=== PATIENT | male | born 1995 | race Caucasian/White ===

== ENCOUNTER 2018-02-19 16:16 | Emergency (ER) | payer OTHER ==
[2018-02-19] MEDS ORDERED: IBUPROFEN 600 MG TAB PO ONE (16:42)
--- NOTE | 2018-02-19 16:50 | EDPHY ---
HPI/HX/ROS/PE/MDM Narrative: CHIEF COMPLAINT: "I seem to have injured my back" HPI: The patient is a 23 y/o male complaining of back pain for the last 2 days onset while golfing Thursday night. He was using the driving range at [employer] when he developed acute pain during a swing. The pain was minimal while golfing and has been progressively worsening since onset. His pain is primarily along his spine between his scapulas. He saw a chiropractor this morning and he did an "electric muscle thing" and and adjustment that made his symptoms worse. He' s been taking DayQuil for this and some concurrent cold symptoms. He has not taken any No prior history of back pain or surgery. He denies fever, weakness, paresthesias. REVIEW OF SYSTEMS: A comprehensive 10 system review of systems is otherwise negative aside from elements mentioned in the history of present illness. PMH: Denies SOCIAL HISTORY: Lives in [place]. PHYSICAL EXAM: General:Patient is alert, in no acute distress. ENT:Eyes are normal to inspection. ENT inspection normal. Neck: Normal inspection. Full range of motion. Respiratory:No respiratory distress. Breath sounds normal bilaterally. Cardiovascular: Regular rate and rhythm. Strong peripheral pulses. Normal cap refill. Abdomen:The abdomen is nontender to palpation. There are no peritoneal signs. Back: Tenderness midthoracic spine, reproducible with twisting movement. No visible trauma. Skin: Normal color. No rash. Warm and dry. Extremities: Normal appearance. Full range of motion. Neuro: Oriented x3. Normal motor function. Normal sensory function. ED Course: Healthy 23y/o male who presents with a 2-day history of progressive thoracic back pain secondary to playing golf. He has tenderness along his midline thoracic spine that is reproducible with movement. Doubt dissection. Plan for chest and thoracic spine x-ray. 600mg PO ibuprofen administered for pain. X-rays are negative. Reassessed patient and discussed findings. He will be discharged with scripts for Flexeril and Medrol dose pack and ibuprofen dose instructions. Recommended follow up with back specialist next week. Return precautions discussed. He is comfortable with this plan. MDM: This is a healthy young male with midline thoracic back pain after repetitive motion injury. I considered acute spinal cord or veterbral issue such as discitis, but patient has no risk factors for this and has a negative XR of the spine. Similarly, the patient has no risk factors for aortic dissection or PE, and CXR is negative for signs of either - furthermore, the patient's pain is easily reproducible with motion, making this less likely. We discussed option of a CT chest even though I feel he is low risk - he is comfortable with plan to decline this and try outpatient management with medrol, flexeril and rest. I have given him a referral to spine. - Data Points Imaging Results: Imaging Impressions Chest X-Ray 02/19/18 16:51 Impression: 1. Normal chest x-ray. 2. Normal thoracic spine series. Thoracic Spine X-Ray 02/19/18 16:51 Impression: 1. Normal chest x-ray. 2. Normal thoracic spine series. Imaging: I viewed and interpreted images myself Medications Given: Discontinued Medications Ibuprofen (Motrin) 600 mg PO EDNOW ONE Stop: 02/19/18 16:43 Last Admin: 02/19/18 16:48 Dose: 600 mg General Time Seen by Provider: 02/19/18 16:39 Initial Vital Signs: Initial Vital Signs Temperature (C) 37.0 C 02/19/18 16:31 Heart Rate 89 02/19/18 16:31 Respiratory Rate 16 02/19/18 16:31 Blood Pressure 141/97 H 02/19/18 16:31 O2 Sat (%) 94 02/19/18 16:31 O2 Delivery Mode Room Air Allergies/Adverse Reactions: No Known Allergies Allergy (Unverified 02/19/18 16:46) Home Medications: Medication Instructions Recorded Cyclobenzaprine [Flexeril] 10 mg PO TID #15 tab 02/19/18 methylPREDNISolone [Medrol Dose 1 each PO AD #1 ea 02/19/18 Mak] Departure - Departure Disposition: Home, Routine, Self-Care Clinical Impression: Back strain Condition: Good Instructions: Thoracic Back Strain (ED) Additional Instructions: 1. Take 600mg ibuprofen every 8 hours for pain and inflammation over the next few days. 2. Use Flexeril as prescribed when needed for severe pain/muscle spasm. This medication can make you drowsy. Do not use prior to driving. 3. Take Medrol dose pack as prescribed. Be sure to complete the entire prescription. 4. Follow up with back specialist next week. 5. Return to the ED for any worsening of condition. Referrals: Dom Joaquin MD [Medical Doctor] - As per Instructions Prescriptions: Cyclobenzaprine [Flexeril] 10 mg PO TID #15 tab methylPREDNISolone [Medrol Dose Mak] 1 each PO AD #1 ea Report Scribed for: Jasen Mccloud Report Scribed by: Suzy Bobo Date of Report: 02/19/18 Time of Report: 16:50 Physician Review and Approval Statement: Portions of this note were transcribed by an ED scribe. I personally performed the history, physical exam, and medical decision making; and confirm the accuracy of the information in the transcribed note.
[2018-02-19 17:58] VITALS: BP 136/86
== END 2018-02-19 17:58 | disposition home or self-care (01) ==
DX: S39.012A Strain of muscle, fascia and tendon of lower back, initial encounter (principal); X50.9XXA Other and unspecified overexertion or strenuous movements or postures, initial encounter; Y93.53 Activity, golf; Y92.39 Other specified sports and athletic area as the place of occurrence of the external cause; Y99.8 Other external cause status

== ENCOUNTER 2018-02-24 09:00 | Emergency (ER) | payer OTHER ==
--- NOTE | 2018-02-24 09:07 | EDPHY ---
H & P Stated Complaint: Rx refill Time Seen by Provider: 02/24/18 09:07 - Personal History Current Tetanus/Diphtheria Vaccine: Yes Current Tetanus Diphtheria and Acellular Pertussis (TDAP): Yes - Medical/Surgical History Hx Asthma: Yes Hx Chronic Respiratory Disease: No Hx Diabetes: No Hx Cardiac Disease: No Hx Renal Disease: No Hx Cirrhosis: No Hx Alcoholism: No Hx HIV/AIDS: No Hx Splenectomy or Spleen Trauma: No Other PMH: tonsilectomy - Social History Smoking Status: Never smoked Constitutional: Initial Vital Signs Temperature (C) 36.6 C 02/24/18 09:04 Heart Rate 88 02/24/18 09:04 Respiratory Rate 16 02/24/18 09:04 Blood Pressure 147/90 H 02/24/18 09:04 O2 Sat (%) 95 02/24/18 09:04 O2 Delivery Mode Room Air Allergies/Adverse Reactions: No Known Allergies Allergy (Unverified 02/24/18 09:04) Home Medications: Medication Instructions Recorded Cyclobenzaprine [Flexeril] 10 mg PO TID #15 tab 02/19/18 methylPREDNISolone [Medrol Dose 1 each PO AD #1 ea 02/19/18 Mak] Cyclobenzaprine [Flexeril 10 MG 10 mg PO TID PRN #15 tab 02/24/18 (*)] Medical Decision Making ED Course/Re-evaluation: CHIEF COMPLAINT: Upper back pain, medication refill HISTORY OF PRESENT ILLNESS: The patient is a 23 y/o male complaining of upper back pain ongoing since 02/17, one week ago. He was practicing his swing at [employer] and developed acute pain during a swing. His pain worsened progressively since onset and he was evaluated in this emergency department 02/19. X-ray at that time was negative for acute processes and he was discharged with a prescription for Flexeril, Medrol Dosepak. He is scheduled for followup with a change control specialist this Thursday. He presents today as he has run out of Flexeril, which helped to relieve his symptoms considerably. He has also tried 200mg ibuprofen TID. His pain is in his upper back, between his scapulae. He denies fever, weakness, numbness, or paresthesias. He denies other recent injuries or trauma and has no further complaints. REVIEW OF SYSTEMS: A comprehensive 10 system review of systems is otherwise negative aside from elements mentioned in the history of present illness and medical decision making. PHYSICAL EXAM: HR, BP, O2 Sat, RR. Temp noted General Appearance: Alert, well hydrated, appropriate, and non-toxic appearing. Head: Atraumatic without scalp tenderness or obvious injury Eyes: Pupils equal, round, reactive to light and accommodation, EOMI, no trauma , no injection. Ears: Clear bilaterally, no perforation, normal landmarks Nose: Atraumatic, no rhinorrhea, clear. Throat: There is no erythema or exudates, no lesions, normal tonsils, mucus membranes moist. Neck: Supple, nontender. Respiratory: No retractions, no distress, no wheezes, and no accessory muscle use. Lungs are clear to auscultation bilaterally. Cardiovascular: Regular rate and rhythm, no murmurs, rubs, or gallops. Bilateral carotid, radial, dorsalis pedis, and posterior tibial pulses intact. Good capillary refill all extremities. Gastrointestinal: Abdomen is soft, nontender, non-distended, no masses, no rebound, no guarding, no peritoneal signs. Musculoskeletal: Tenderness to paraspinous muscles of upper back. Normal active ROM of all extremities, atraumatic. Neurological: Alert, appropriate, and interactive. The patient has normal DTRs and non-focal cranial nerves, motor, sensory, and cerebellar exam. Skin: No rashes, good turgor, no nodules on palpation. Past medical history: Denies. Past surgical history: Noncontributory. Family history: Noncontributory. Social history: Single. Lives in [place]. Does not abuse tobacco, drugs, or alcohol. DIFFERENTIAL DIAGNOSIS: The differential diagnosis for the patient's back pain included but was not limited to musculo-skeletal pain, epidural abscess, herniated disk, spinal fracture, and intra-abdominal causes including urinary system. MEDICAL DECISION MAKIN23 y/o male presents with ongoing upper back pain. Exam and history likely consistent with musculoskeletal pain rather than disc herniation, which would be unlikely given the patient's age and mechanism. Symptoms likely consistent with levator scapulae or rhomboid injury. The patient is already scheduled to follow up with a change control specialist on Thursday and presents today primarily for medication refill. X-ray on 02/19 was negative for acute processes or osseous abnormalities. I will provide a prescription for Flexeril for the patient. We discussed increasing his ibuprofen dosage to 600mg every 6-8 hours. He is concerned regarding adverse side effects including abdominal discomfort, so I recommended he take Pepcid OTC as well. He is amenable to this. Plan to discharge home in good condition. He will follow up with change control specialist as scheduled Thursday. Return precautions discussed. He is comfortable with this plan. Departure - Departure Disposition: Home, Routine, Self-Care Clinical Impression: Upper back pain Condition: Good Instructions: Back Pain (ED) Additional Instructions: Take Pepcid, available over the counter, as directed on the packaging. Take Flexeril as prescribed. You may take ibuprofen 600mg every 6-8 hours as needed for pain. Follow up on Thursday as scheduled with the back specialist. Return to the emergency department for severe pain, fever, numbness, difficulty walking, change in location or nature of pain or other concerns. Referrals: Dom Joaquin MD [Medical Doctor] - As per Instructions [facility] [Outside] - As per Instructions Prescriptions: Cyclobenzaprine [Flexeril 10 MG (*)] 10 mg PO TID PRN #15 tab PRN Reason: Spasms Report Scribed for: Loyd Morton Report Scribed by: Tammie Kahtleen Date of Report: 02/24/18 Time of Report: 09:22
[2018-02-24 09:11] VITALS: BP 147/90
== END 2018-02-24 09:21 | disposition home or self-care (01) ==
DX: M54.6 Pain in thoracic spine (principal); Z76.0 Encounter for issue of repeat prescription